=== PATIENT | female | born 1995 | race Caucasian/White ===

== ENCOUNTER 2024-01-06 17:46 | Emergency (ER) | payer OTHER, SELFPAY ==
[2024-01-06] VITALS (7 sets, daily range): BP systolic 126–137; BP diastolic 72–85; PULSE 88–96; RESP 16–20; TEMP 36.4–36.8; O2SAT 94–100
--- NOTE | ~2024-01-06 | XR_ITS ---
Left foot Technique: AP, oblique, and lateral views were obtained. Clinical History: Swelling Findings: There is a transverse, probable acute to subacute minimally displaced fracture the distal s econd metatarsal neck.. There is diffuse generous osteopenia. There is orthopedic fusion at the media l aspect of the foot extending across the navicular, medial cuneiform, and first metatarsal. There is additional fusion across the second tarsometatarsal joint with plate extending from the middle [place] form the second metatarsal. Prior ORIF at the medial and lateral malleoli also noted. There is soft t issue swelling at the forefoot. Impression: Probable acute to subacute transverse mildly displaced fracture the distal second metatarsal neck. Orthopedic fusion/fixation, as detailed above. Soft tissue swelling in the forefoot. Generalized osteopenia. Reviewed, dictated and finalized at [facility]. Impression: Probable acute to subacute transverse mildly displaced fracture the distal seco nd metatarsal neck. Orthopedic fusion/fixation, as detailed above. Soft tissue swelling in the forefoot. Generalized osteopenia.
[2024-01-06] MEDS: HALOPERIDOL LACTATE 5 MG/ML VIAL IM (18:21)
[2024-01-06] MEDS: diphenhydrAMINE HCl INJ 50 MG/ML VIAL IM (19:22)
[2024-01-06 19:23] LABS: BEDSIDEPREGUCG Negative (Negative)
[2024-01-06] MEDS: LORazepam INJ (*CRX) 2 MG/ML VIAL IM (19:23)
[2024-01-06 19:31] LABS: Basophils Absolute Auto 0.1 K/mm3 (0.0-0.1); Basophils Percent Auto 0.7 % (0.2-1.2); Eosinophils Absolute Auto 0.2 K/mm3 (0-0.3); Eosinophils Percent Auto 1.9 % (0-4.4); Hematocrit 37.8 % (37.0-47.0); Hemoglobin 11.9 g/dL (12.0-15.0); Immature Granulocyte Absolute 0.03 K/mm3 (0.00-0.031); Immature Granulocyte Percent A 0.4 % (0-0.5); Lymphocytes Percent Auto 35.4 % (18.3-44.2); Mean Corpuscular HGB Conc 31.5 g/dl (32-36); Mean Corpuscular Hemoglobin 31.2 pg (26-34); Mean Platelet Volume 9.1 fl (7.4-10.4); Monocytes Absolute Auto 0.5 K/mm3 (0.1-0.6); Monocytes Percent Auto 5.8 % (2.6-8.5); Neutrophils Absolute Auto 4.7 K/mm3 (1.3-6.7); Neutrophils Percent Auto 55.8 % (45.5-73.1); Platelet Count Result 314 k/mm3 (150-375); Red Blood Count 3.82 M/mm3 (4.2-5.4); Red Cell Distribution Width 12.8 % (11.5-14.5); White Blood Count 8.5 K/mm3 (4.5-10.0)
[2024-01-06 19:42] LABS: Ethanol < 10 mg/dL (<10)
[2024-01-06 19:53] LABS: Alanine Aminotransferase 26 U/L (6-35); Albumin Level 4.3 g/dL (3.5-5.1); Alkaline Phosphatase 63 U/L (38-126); Anion Gap 9 mmol/L (4-12); Aspartate Amino Transferase 34 U/L (14-36); Bilirubin,Total 0.5 mg/dL (0.2-1.3); Blood Urea Nitrogen 9 mg/dL (7-17); Carbon Dioxide 24 mmol/L (22-30); Chloride 105 mmol/L (98-107); Estimated CRCL calculation 124 ml/min; Estimated Glomerular Filt Rate > 60; Glucose 121 mg/dL (65-110); Potassium 3.5 mmol/L (3.4-5.0); Sodium 138 mmol/L (137-145)
[2024-01-06 20:04] LABS: Add Urine Microscopic? YES; Appearance Urine Cloudy (Clear); Bacteria Urine 2+ /hpf; Bilirubin Urine 1+ (Negative); Blood Urine Negative (Negative); Calcium Oxalate Crystals Urine Present /hpf; Color Urine Dark Yellow (Yellow); Glucose Urine UA Negative (Negative); Ketones Urine Trace mg/dL (Negative); Leukocyte Esterase Ur Trace LEU/UL (Negative); Nitrate Urine Negative (Negative); Non Pathogenic Casts 0-2; Protein Urine 1+ mg/dL (Negative); RBC Urine 21-50 /hpf (0-2); Specific Grav Ur 1.029 (1.001-1.035); Squamous Epithelial Cell Urine Moderate /hpf (Few); WBC Urine 0-5 /hpf (0-3)
[2024-01-06 20:13] LABS: Barbiturate Screen Urine Negative (Negative); Benzodiazepines Screen Urine Negative (Negative)
[2024-01-06 20:39] LABS: Cannabinoid Screen Urine Positive (Negative); Cocaine Screen Urine Negative (Negative); Methadone Screen Urine Negative (Negative); Opiate Screen Urine Negative (Negative); Phencyclidine Screen Urine Negative (Negative)
--- NOTE | 2024-01-06 20:40 | ED.PSYCH ---
HPI - Psych General Chief Complaint: Psychiatric Symptoms <Hannah Morales APRN - Last Filed: 01/07/24 04:22> Stated Complaint: manic <Hannah Morales APRN - Last Filed: 01/07/24 04:22> Time Seen by Provider: 01/06/24 17:51 <Hannah Morales APRN - Last Filed: 01/07/24 04:22> Source: EMS and police <Hannah Morales APRN - Last Filed: 01/07/24 04:22> Mode of arrival: EMS <Hannah Morales APRN - Last Filed: 01/07/24 04:22> Limitations: no limitations <Hannah Morales APRN - Last Filed: 01/07/24 04:22> History of Present Illness HPI Narrative: Pt a 28-year-old female who presents to the ER with altered mental status. Per EMS she was found acting erratically at a well-known local drug house. Upon arrival to the ER patient was acting erratically and EMS reports she had been acting that way during transport also. Patient is alert but does not answer questions appropriately. She is speaking quickly, conversing with others about irrelevant topics, and using inappropriate language. patient is unable to answer questions about her medical history. Patient is able to affirm she has no thoughts of hurting herself or anyone else. She has no history of medical care at this facility. Patient has no complaints of pain. <Hannah Morales APRN - Last Filed: 01/07/24 04:22> Related Data Allergies/Adverse Reactions: Allergies Allergy/AdvReac Type Severity Reaction Status Date / Time No Known Allergies Allergy Verified 01/06/24 18:14 <Hannah Morales APRN - Last Filed: 01/07/24 04:22> Review of Systems Review of Systems: All systems reviewed & are unremarkable except as noted in HPI and below <Hannah Morales APRN - Last Filed: 01/07/24 04:22> [facility] Social History Social History: Social History Substance use type: IV drugs and methamphetamine <[facility], [employer]TER - Last Filed: 01/07/24 04:22> Exam Narrative: GENERAL: Well appearing, well-nourished, difficulty engaging in conversation HEAD: Normocephalic, atraumatic, although pt does have blue stains all over face, head, and neck from an unknown substance NECK: Supple. No adenopathy, no masses. RESPIRATORY: Airway patent, respirations nonlabored. Clear to auscultation bilaterally, no rales, rhonchi, wheezing. CARDIOVASCULAR: Regular rate and rhythm without murmurs, rubs, or gallops. Peripheral pulses 2+ and equal bilaterally. ABDOMINAL: Soft, nontender, nondistended, no hepatosplenomegaly. Normoactive BS. MUSCULOSKELETAL: Moves all extremities. Strength/ROM intact, but pt fails to put much weight on her L foot when walking SKIN: Warm, dry, L lower extremity is swollen and red without any oozing, appears as though this was a previous site where pt had injected drugs NEURO: Pt is alert but not oriented. Her speech is clear, but her topics of conversation are widely variable and non-sensible. Cranial nerves II-XII grossly intact. No ataxic movements. PSYCHIATRIC: Pt appears to be in a manic state. She has delayed tracking with eye movements and responses to questions. Pt is agitated and screaming intermittently. She is willing to accept medical care from healthcare providers on some things, but reacts negatively to others. <Hannah Diego Morales, [employer]ST[employer]OUNTER - Last Filed: 01/07/24 04:22> Course Course Emergency Course: Received patient in sign-out at 4:00 a.m. by midlevel provider. I was informed that patient is medically cleared for psychiatric evaluation and treatment at this time. Patient did receive Haldol and Ativan prior to my assumption of patient's care. Crisis will be in to evaluate the patient and provide recommendations at this time. Please refer to previous documentations for remainder of patient's care and course during her stay. At 6:00 a.m. there was an over-read of patient's previously obtained left foot x-ray that the previous pro
[2024-01-06 20:59] LABS: Influenza A QL RT-PCR Negative (Negative); Influenza B QL RT-PCR Negative (Negative); RSV RNA, RT-PCR Negative (Negative); SARS-CoV-2 RNA PCR Negative (Negative)
[2024-01-06 22:17] LABS: Amphetamine Screen Urine Positive (Negative)
--- NOTE | 2024-01-06 23:55 | PC.NURSE ---
CRISIS states that they cannot do a proper evaluation due to patient nodding off. Per [facility] patient will need to be up for one consecutive hour before being called for an evaluation.
[2024-01-07] MEDS: Please add drug allergy info to patient profile. 1 EACH XX (00:02)
[2024-01-07 01:01] VITALS: BP 92/53; PULSE 74; RESP 16; TEMP 36.5; O2SAT 100
--- NOTE | 2024-01-07 08:04 | PC.NURSE ---
Ordered regular breakfast tray with safety precautions for pt.
--- NOTE | 2024-01-07 08:51 | PC.NURSE ---
Pt awake and eating breakfast.
[2024-01-07 10:33] VITALS: BP 111/70; PULSE 95; RESP 16; TEMP 36.7; O2SAT 97
--- NOTE | 2024-01-07 10:59 | PC.NURSE ---
Pt seen ambulating out ambulance bay with steady gait. ED security called to attempt to bring pt back into ED to be assessed by EDP Dr. Zhao. Unsuccessful attempt at bringing pt back into dept at this time.
== END 2024-01-07 11:07 | disposition left against medical advice (07) ==
PROVIDERS: Registered Nurse; Emergency Provider Student in an Organized Health Care Education/Training Program
DX: F29 Unspecified psychosis not due to a substance or known physiological condition (principal); Z20.822 Contact with and (suspected) exposure to COVID-19
CPT/HCPCS: 36415; 73630; 80053; 80307; 81001; 81025; 84443; 85025; 87637; 96372; 99284; J1200; J1630; J2060